=== PATIENT | female | born 1980 | race Caucasian/White ===

== ENCOUNTER 2018-08-30 22:03 | Outpatient (REF) | payer OTHER, MEDICAID, SELFPAY | END 2018-08-30 22:23 | LOC: NCHCN 22:03 | PROVIDERS: PCP Family Medicine; Visit Provider Nurse Practitioner Family | DX: N39.0 Urinary tract infection, site not specified (principal) | CPT/HCPCS: 87077; 87086; 87186 ==

== ENCOUNTER 2018-11-11 08:28 | Outpatient (REF) | payer OTHER, MEDICAID, SELFPAY ==
[2018-11-11 21:19] LABS: HCT 40.1 % (36.0-46.0); HGB 13.1 g/dL (12.0-15.5); Mean Corp. HGB Concentration 32.7 g/dL (32.0-36.0); Mean Corpuscular Hemoglobin 30.3 pg (27.0-33.0); Mean Corpuscular Volume 92.6 fL (80-95); Mean Platelet Volume 9.4 fL (8.0-11.0); Platelet Count 285 x1000/uL (130-400); RBC 4.33 m/cumm (4.00-5.20); RBC Distribution Width 13.3 % (11.7-14.6); White Blood Cell Count 5.24 k/cumm (4.4-10.8)
[2018-11-11 21:47] LABS: Cholesterol 236 mg/dL (50-200); Glucose 83 mg/dL (70-100); HDL Cholesterol 70 mg/dL (40-60); LDL CHOLESTEROL 150 mg/dL (<100); TSH 1.27 uIU/mL (0.358-3.74); Triglyceride 76 mg/dL (30-150)
== END 2018-11-11 08:48 ==
LOC: NCHCN 08:28
PROVIDERS: PCP Family Medicine; Visit Provider Nurse Practitioner Family
DX: Z00.00 Encounter for general adult medical examination without abnormal findings (principal); R53.83 Other fatigue; Z13.220 Encounter for screening for lipoid disorders
CPT/HCPCS: 80061; 82947; 83721; 85027; 84443

== ENCOUNTER 2020-09-05 15:53 | Outpatient (REF) | payer MEDICAID, SELFPAY ==
[2020-09-05 22:58] LABS: Calculated LDL 106 mg/dL (<100); Cholesterol 196 mg/dL (<200); HDL Cholesterol 78 mg/dL (40-60); TSH (W/Ref FT4) 1.23 uIU/mL (0.36-3.74); Triglyceride 64 mg/dL (<150)
== END 2020-09-05 16:13 ==
LOC: NCHCN 15:53
PROVIDERS: PCP Family Medicine; Visit Provider Nurse Practitioner Community Health
DX: E78.5 Hyperlipidemia, unspecified (principal); Z13.29 Encounter for screening for other suspected endocrine disorder
CPT/HCPCS: 80061; 84443

== ENCOUNTER 2021-05-15 11:13 | Outpatient (REF) | payer MEDICAID, SELFPAY ==
[2021-05-15 14:47] LABS: Prothrombin Time 10.2 sec (9.3-11.0)
[2021-05-15 14:56] LABS: Abs Immature Grans 0.02 10^3/uL (0.0-0.06); Absolute Basophil Count 0.03 10^3/uL (0.0-0.2); Absolute Eosinophil Count 0.09 10^3/uL (0.0-0.7); Absolute Lymphocyte Count 1.41 10^3/uL (1.2-3.4); Absolute Monocyte Count 0.46 10^3/uL (0.1-0.8); Absolute Neutrophil Count 3.24 10^3/uL (1.2-6.7); Basophils % 0.6; Eosinophils % 1.7; HCT 40.8 % (36.0-46.0); HGB 13.4 g/dL (11.2-15.7); Immature Grans % 0.4; Lymphocytes % 26.9; MCH 30.9 pg (27.0-33.0); MCHC 32.8 % (32.0-36.0); MCV 94.2 fL (80-95); Monocytes % 8.8; Neutrophils % 61.6; Nucleated RBC 0 %; Platelet Count 318 10^3/uL (130-400); RBC 4.33 10^6/uL (3.93-5.22); RDW 12.2 % (11.7-14.6); RDW-SD 42.6 fL; WBC 5.25 10^3/uL (4.4-10.8)
[2021-05-15 15:05] LABS: ALT 19 U/L (14-59); AST 17 U/L (15-37); Albumin 4.2 g/dL (3.4-5.0); Alkaline Phosphatase 53 U/L (46-116); Bilirubin, Direct 0.1 mg/dL (0.0-0.2); Bilirubin, Total 0.4 mg/dL (0.2-1.0); Total Protein 7.2 g/dL (6.4-8.2)
[2021-05-16 02:41] LABS: COVID-19 RT-PCR UVMMC Result Negative (Negative)
== END 2021-05-15 11:14 | disposition home or self-care (01) ==
LOC: NCHCN 11:13
PROVIDERS: PCP Family Medicine; Visit Provider Nurse Practitioner Community Health
DX: R23.8 Other skin changes (principal); Z20.822 Contact with and (suspected) exposure to COVID-19; J02.9 Acute pharyngitis, unspecified
CPT/HCPCS: 80076; U0003; 85025; 85610

== ENCOUNTER 2021-05-23 13:14 | Outpatient (REF) | payer MEDICAID, SELFPAY ==
--- NOTE | 2021-05-23 08:30 | SKI_PTH ---
PATIENT: Poonam Lezama LOC: [facility] U#:[id number] AGE/SX: 40/F ROOM: RE05/23/[address]: Areli Olivier : 1980 BED: DIS: 05/23/2021 SPEC #: [id number] RECD: 05/23/21 13:31 STATUS: OLEG REElijah #: [id number] SOL: 05/23/21 08:[address]: Areli Salazar DEPT: Surgical Specimen RECD BY: Echo Wheeler ENTERED: 05/23/21 13:31 SP TYPE: JIMBO LY DR: Matthias Matamoros Tissues: 1 - SKIN BIOPSY(SHAVE/PUNCH) Procedures: SKIN LEVEL 4 Comments: [id number]
== END 2021-05-23 13:15 | disposition home or self-care (01) ==
LOC: LBN 13:14
PROVIDERS: PCP Family Medicine; Visit Provider Nurse Practitioner Family
DX: C44.519 Basal cell carcinoma of skin of other part of trunk (principal)
CPT/HCPCS: 88305